=== PATIENT | female | born 1990 | race Caucasian/White ===

== ENCOUNTER 2019-11-14 17:16 | Emergency (ER) | payer OTHER, SELFPAY ==
--- NOTE | ~2019-11-14 | XR_ITS ---
XR shoulder RT min 2V 11/14/2019 18:51 Indication: Postreduction right shoulder Procedure: 2 views right shoulder Comparison: 11/14/2019 Findings: Normal anatomic alignment of the right shoulder post reduction. No fracture or traumatic ma lalignment. Surrounding osseous structures are unremarkable. No focal soft tissue abnormality. Impression: 1: Normal anatomic alignment of the right shoulder post reduction. Reviewed, dictated and finalized at location A. GE PREVENTION COORDINATOR Impression: 1: Normal anatomic alignment of the right shoulder post reduction.
--- NOTE | ~2019-11-14 | XR_ITS ---
XR shoulder RT min 2V 11/14/2019 17:57 Indication: Right shoulder pain after fall downstairs Procedure: 2 views right shoulder Comparison: No prior studies for comparison. Findings: There is right anterior shoulder dislocation. No definite fracture is identified. Surroundi ng osseous structures within normal limits. Impression: 1: Right anterior shoulder dislocation. Reviewed, dictated and finalized at location A. E SAW OPERATOR Impression: 1: Right anterior shoulder dislocation.
[2019-11-14 17:31] VITALS: BP 121/79; PULSE 65; RESP 20; TEMP 36.6; O2SAT 100
--- NOTE | 2019-11-14 17:52 | ED.UPPEXIN ---
HPI - Extremity Injury (Upper) General Chief Complaint: Extremity Injury, Upper <Elizabeth Delgado PA-C - Last Filed: 11/14/19 19:08> Stated Complaint: arm pain <NINA Bowen Last Filed: 11/14/19 19:08> Time Seen by Provider: 11/14/19 17:23 <NINA Bowen Last Filed: 11/14/19 19:08> Source: patient <NINA Bowen Last Filed: 11/14/19 19:08> Mode of arrival: ambulatory <NINA Bowen Last Filed: 11/14/19 19:08> Limitations: no limitations <NINA Bowen Last Filed: 11/14/19 19:08> History of Present Illness HPI narrative: This is a 29 year old female that presents to the ER for right arm injury today. Reports she slipped down the stairs and fell backwards onto her right elbow. Reports since she has had pain in her right shoulder that radiates into elbow. Reports she is unable to lift the arm to due pain. Denies hitting her head, loss of consciousness, or numbness. <NINA Bowen Last Filed: 11/14/19 19:08> Related Data Home Medications: Home Medications Medication Instructions Recorded Confirmed Sprintec (28) 1 tab/day PO DAILY 11/14/19 11/14/19 <NINA Bowen Last Filed: 11/14/19 19:08> Allergies/Adverse Reactions: Allergies Allergy/AdvReac Type Severity Reaction Status Date / Time Sulfa (Sulfonamide Allergy Rash Verified 11/14/19 17:38 Antibiotics) <NINA Bowen Last Filed: 11/14/19 19:08> Review of Systems Review of Systems: Narrative: CONSTITUTIONAL: Denies fever MUSCULOSKELETAL: Reports joint pain, and myalgia. NEUROLOGIC: Denies numbness <NINA Bowen Last Filed: 11/14/19 19:08> All systems reviewed & are unremarkable except as noted in HPI and below <NINA Bowen Last Filed: 11/14/19 19:08> FORMERLY [facility], [facility] Past Medical History Medical History: Medical History (Updated 11/14/19 @ 19:06 by Elizabeth Delgado PA-C) History of obesity <Elizabeth Delgado PA-C - Last Filed: 11/14/19 19:08> Social History Social History: Social History (Updated 11/14/19 @ 18:00 by Elizabeth Delgado PA-C) Substance use: never <Elizabeth Delgado PA-C - Last Filed: 11/14/19 19:08> Exam Narrative: Exam Narrative: GENERAL: Well-appearing, well-nourished, and in no acute distress. HEAD: Normocephalic, atraumatic. EYES: EOMI. CHEST: Clear to auscultation. No respiratory distress. No wheezes rales or rhonchi HEART: Regular rate and rhythm. No murmur heard. Normal peripheral pulses. EXTREMITIES: Right shoulder with decreased ROM due to pain. No edema. Right shoulder with obvious step off. Normal sensation and radial pulses. Normal ROM at the right elbow, nontender to palpation SKIN: Warm, dry, no rash. NEURO: No focal deficits. Alert and oriented x3. PSYCH: Normal mood and affect <Elizabeth Delgado PA-C - Last Filed: 11/14/19 19:08> Course Vital Signs Vital signs: Vital Signs Temperature 36.6 C 11/14/19 17:31 Pulse Rate 65 11/14/19 17:31 Respiratory Rate 20 11/14/19 17:31 Blood Pressure 121/79 11/14/19 17:31 Pulse Oximetry 100 11/14/19 17:31 Temperature 36.8 C 11/14/19 19:25 Pulse Rate 78 11/14/19 19:25 Respiratory Rate 18 11/14/19 19:25 Blood Pressure 125/80 11/14/19 19:25 Pulse Oximetry 100 11/14/19 19:25 <Elizabeth Delgado PA-C - Last Filed: 11/14/19 19:08> Vital Signs Temperature 36.6 C 11/14/19 17:31 Pulse Rate 65 11/14/19 17:31 Respiratory Rate 20 11/14/19 17:31 Blood Pressure 121/79 11/14/19 17:31 Pulse Oximetry 100 11/14/19 17:31 Temperature 36.8 C 11/14/19 19:25 Pulse Rate 78 11/14/19 19:25 Respiratory Rate 18 11/14/19 19:25 Blood Pressure 125/80 11/14/19 19:25 Pulse Oximetry 100 11/14/19 19:25 <Mario Jones MD - Last Filed: 11/14/19 21:03> Procedures Orthopedic Joint Reduction Joint #1: Orthopedic Joint Reduction Date: 11/14/19 <E
[2019-11-14 18:00] VITALS: BP 126/87; PULSE 64; RESP 17; O2SAT 100
[2019-11-14] MEDS: MORPHINE SULFATE 4 MG/ML INJ IV PUSH (18:01)
[2019-11-14 18:15] VITALS: BP 124/80; PULSE 64; RESP 20; O2SAT 100
[2019-11-14 18:30] VITALS: BP 131/86; PULSE 77; RESP 18; O2SAT 100
--- NOTE | 2019-11-14 18:54 | PC.NURSE ---
Pt placed into shoulder immobilizer. Pt educated on use. PMS intact prior and post placement of shoulder immobilizer.
[2019-11-14 19:25] VITALS: BP 125/80; PULSE 78; RESP 18; TEMP 36.8; O2SAT 100
== END 2019-11-14 19:28 | disposition home or self-care (01) ==
PROVIDERS: Emergency Provider Emergency Medicine; PCP Family Medicine
DX: S43.014A Anterior dislocation of right humerus, initial encounter (principal); W10.9XXA Fall (on) (from) unspecified stairs and steps, initial encounter
CPT/HCPCS: 23655; 73030; 96374; 96375; 99285; J2270; J3010

== ENCOUNTER → 2020-10-23 15:06 | Outpatient (CLI) | payer OTHER, SELFPAY ==
--- NOTE | ~2020-10-23 | US_ITS ---
EXAMINATION: US thyroid DATE: 10/23/2020 15:22 INDICATION: Goiter. TECHNIQUE: Multiple ultrasound images of the thyroid were obtained. COMPARISON: None. FINDINGS: The right thyroid lobe measures 4.5 x 1.4 x 1.3 cm. The left thyroid lobe measures 5.0 x 1.2 x 1.6 c m. In the left thyroid lobe, there is a 5 mm solid, hypoechoic, lgggd-vquz-iehl nodule with smooth m argin and punctate echogenic focus (TI-RADS TR5). In the left thyroid lobe, there is a 2 mm nodule, l ikely not clinically significant. IMPRESSION: 1. Small thyroid nodules. Thyroid ultrasound is recommended in one year. Reviewed, dictated and finalized at location A. CTOR FINANCIAL ANALYSIS
== END ==
PROVIDERS: PCP Family Medicine; Visit Provider Internal Medicine Endocrinology, Diabetes & Metabolism
DX: E04.2 Nontoxic multinodular goiter (principal)
CPT/HCPCS: 76536

== ENCOUNTER 2024-04-29 11:30 | Emergency (ER) | payer OTHER, SELFPAY ==
[2024-04-29 11:41] VITALS: BP 131/90; PULSE 125; RESP 20; O2SAT 100
[2024-04-29] MEDS: diphenhydrAMINE HCl INJ 50 MG/ML VIAL (11:52)
[2024-04-29] MEDS: SODIUM CHLORIDE 0.9% IV 50 ML 100 ML (11:52)
[2024-04-29 12:44] VITALS: BP 100/66; PULSE 117; RESP 21; O2SAT 99
--- NOTE | 2024-04-29 13:18 | ED.ALLEREA ---
HPI - Allergic Reaction General Chief complaint: Allergic Reaction Stated complaint: allergic reaction Time Seen by Provider: 04/29/24 11:45 History of Present Illness HPI narrative: Patient is a 33-year-old female who presents ER with urticarial reaction. Began just prior to arrival has been having issues since delivering a baby 1 week ago. She had been having some joint aches and she had also had fever on a separate day. [facility] where she had a viral panel yesterday as well as blood work and it was all normal. This has been reviewed on her [facility] everywhere appt. No difficulty breathing or swallowing. She does have itching. No new oral medications. She thought she had a viral syndrome and she has been pumping and dumping. No new perfumes or fabric softeners. Related Data Home Medications Medication Instructions Recorded Confirmed Sprintec (28) 1 tab/day PO DAILY 11/14/19 11/14/19 Allergies Allergy/AdvReac Type Severity Reaction Status Date / Time Sulfa (Sulfonamide Allergy Rash Verified 04/29/24 11:42 Antibiotics) Review of Systems Review of Systems: All systems reviewed & are unremarkable except as noted in HPI and below Constitutional: Constitutional: Reports no additional constitutional complaints Cardiovascular: Cardiovascular: Reports no additional cardiovascular complaints Respiratory: Respiratory: Reports no additional respiratory complaints Musculoskeletal: Musculoskeletal: Reports no additional musculoskeletal complaints Integumentary/Breasts: Skin/Breast: Reports pruritus, Denies erythema, Reports rash and Denies skin ulcer PMFSH Past Medical History Medical History (Updated 04/29/24 @ 14:25 by Sameer Jacobs MD) Anterior shoulder dislocation (11/14/19) History of obesity Family History Family History Other Cancer Diabetes mellitus Heart disease Hypertension Kidney disease Nerve disorder Social History Social History Alcohol intake: current Drinks per week: 1 Substance use: never Exam Narrative: GENERAL: Well-appearing, well-nourished, and in no acute distress. HEAD: Normocephalic, atraumatic. ENT: Mucous membranes moist. NECK: Supple. CHEST: Clear to auscultation. No respiratory distress. HEART: Tachycardic and regular. Normal peripheral pulses. EXTREMITIES: Normal range of motion. No edema. Nummular in appearance. No excoriations. NEURO: Alert and oriented x3. PSYCH: Normal mood and affect. Course Course Emergency Course: Symptoms resolved with Benadryl. Recommend Zyrtec and famotidine for home. Follow-up with OB. Vital Signs Vital signs: Vital Signs Oxygen Delivery Room Air 04/29/24 11:40 Pulse Rate 109 H 04/29/24 14:14 Respiratory Rate 20 04/29/24 14:14 Blood Pressure 117/90 04/29/24 13:25 Pulse Oximetry 98 04/29/24 14:14 Oxygen Delivery Room Air 04/29/24 11:41 Discharge Plan Discharge Clinical Impression: Urticaria Patient Disposition: Home, Self-Care Condition: Stable Instructions: Urticaria (ED) Additional Instructions: Return the ER if you have difficulty breathing, you have difficulty swelling, you have worsening rash, have additional concerns. You may take Zyrtec and famotidine to help prevent recurrence of the rash. Follow-up with your OB. Prescriptions: New cetirizine [Zyrtec] 10 mg tablet 10 mg PO DAILY Qty: 10 0RF famotidine 10 mg tablet 10 mg PO BID Qty: 20 0RF No Action Sprintec (28) 1 tab/day PO DAILY hydrocodone-acetaminophen 5-325 mg tablet 1 tablet PO Q8H PRN (Reason: pain) Qty: 20 0RF Follow-up/Referrals: Jorge Luis,MD Oniel [Primary Care Provider] - 1 Week
[2024-04-29 13:25] VITALS: BP 117/90; PULSE 109; RESP 20; O2SAT 98
[2024-04-29 14:14] VITALS: PULSE 109; RESP 20; O2SAT 98
[2024-04-29 14:30] VITALS: BP 127/90; PULSE 106; RESP 19; TEMP 36.5; O2SAT 98
== END 2024-04-29 14:31 | disposition home or self-care (01) ==
PROVIDERS: Emergency Provider Emergency Medicine; PCP Family Medicine
DX: O99.73 Diseases of the skin and subcutaneous tissue complicating the puerperium (principal); L50.9 Urticaria, unspecified; O99.215 Obesity complicating the puerperium; E66.9 Obesity, unspecified
CPT/HCPCS: 96361; 96374; 99284; J1200

== ENCOUNTER 2024-10-28 20:33 | Emergency (ER) | payer OTHER, SELFPAY ==
--- OUTSIDE RECORDS SUMMARY | 2024-10-28 20:34 | XMS_ITS | Encounter Summary ---
Author Organization [facility] Healthcare Address [address] [place] [address] Care Team Providers Care Silk Screen Repairer Name Role Phone Maria Teresa Colon MD Primary Care Provider Encounter Details Date Type Department Care Team (Late st Contact Info) Description 04/28/[address] [phone] Denisse Pizarro RN Social History Tobacco Use Types Packs/Day Years Used Date Smoking Tobacco: Never Passive Smoke Exposure: Never Smokeless Tobacco: Never [facility] Utilities Answer Date Recorded In the past 12 months has [employer] electric, gas, oil, or water company threatened to shut off services in your home? No 04/21/2024 Social Connection and Isolat ion Panel [NHANES] Answer Date Recorded In a typical week, how many times do you talk on the phone with family, friends, or neighbors? More than three times a week 04/21/2024 How often do you get togethe r with friends or relatives? More than three times a week 04/21/2024 How often do you attend chur ch or gnosticism services? Never 04/21/2024 Do you belong to any clubs o r organizations such as spiritism groups, unions, fraternal or athletic groups, or school groups? No 04/21/2024 How often do you attend meet ings of the clubs or organizations you belong to? Never 04/21/2024 Are you , , di vorced, , never , or living with a partner? 04/21/2024 AUDIT-C Answer Date Recorded Q1: How often do you have a drink containing alc ohol? 2-4 times a month 09/14/2023 Q2: How many drinks containi ng alcohol do you have on a typical day when you are drinking? 1 or 2 09/14/2023 Q3: How often do you have si x or more drinks on one occasion? Never 09/14/2023 Overall Financial Resource Strain (CARDIA) Answe r Date Recorded How hard is it for you to pa y for the very basics like food, housing, medical care, and heating? Not hard at all 04/21/2024 Hunger Vital Sign Answer Date Recorded Within the past 12 months, y ou worried that your food would run out before you got the money to buy more. Never true 04/21/20 24 Within the past 12 months, t he food you bought just didn't last and you didn't have money to get more. Never true 04/21/2024 PRAPARE - Transportation Answer Date Re corded In the past 12 months, has l ack of transportation kept you from medical appointments or from getting medications? No 03/28 In the past 12 months, has l ack of transportation kept you from meetings, work, or from getting things needed for daily living? No 04/21/2024 Housing Stability Vital Sign Answer Arthur e Recorded In the last 12 months, was t here a time when you were not able to pay the mortgage or rent on time? No 04/21/2024 In the past 12 months, how m any times have you moved where you were living? 1 04/21/2024 At any time in the past 12 m [facility], were you homeless or living in a jail (including now)? No 04/21/2024 Personal Safety Answer Date Recorded Have you ever been in or are you currently in a harmful physical or emotional relationship or is someone making you feel afraid or unsafe? 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 Not on file Not on file Not on file documented as of this encounter Plan of Treatment Not on file documented as of this encounter Visit Diagnoses Not on filedocumented in this encounter Additional Health Concerns Infection Onset Date Last Indicated Resolved Time COVID: Suspected 04/28/2024 04/28/2024 04/28/2024 10:42 AM CDT COVID: Suspected 04/28/2024 04/28/2024 04/28/2024 12:25 PM CDT documented as of this encounter Care Teams Silk Screen Repairer Relationship Specialty Start Date End Date Maria Teresa Colon MD [address] [place] [id number] PCP - General Family Medicine 06/25/23 documented as of this encounter
--- OUTSIDE RECORDS SUMMARY | 2024-10-28 20:34 | XMS_ITS | Clinical Summary ---
Author Organization [facility] Address [address] [place] [address] Care Team Providers Care Show Card Writer Name Role Phone Maria Teresa Colon MD Primary Care Provider Allergies Active Allergy Reactions Criticality Noted Date Comments Sulfa Rash Medium 09/14/2023 Medications PNV no.95/ferrous fum/folic ac ( ORAL) Take by mouth Active aspirin 81 mg enteric coated tablet Take 1 tablet (81 mg total) by mouth daily Active iron 18 mg tablet Take by mouth Active sertraline (ZOLOFT) 100 mg tablet TAKE 1 TABLET BY MOUTH ONCE A DAY 30 DAYS (DISCONTINUE 50MG TAB) 4 Active Unithroid 50 mcg tabletIndication s:Hypothyroidism , unspecified type Take 1 tablet (50 mcg total) by mouth daily 90 tablet 3 4 Active metFORMIN XR (GLUCOPHAGE XR) 500 mg 24 hr tabletIndication s:PCOS (polycystic ovarian syndrome) Take 1 tablet (500 mg total) by mouth daily with breakfast 90 tablet 3 4 Active Active Problems Problem Noted Date Diagnosed Date Hypothyroidism 06/21/2024 Obesity 06/21/2024 care following delivery 03/28 Overview (04/23/2024): # ID: Afebrile. No signs/symptoms of infection. # Heme: Admit Hgb 11.4 > EBL 800 mL> Hgb 8.7> 9.0> 8.5> 8.1> 8.4. Hemodynamically stable. PO Iron started # CV/Pulm: Patient with 2xMR pressures postop, not meeting criteria for gHTN. CBC/CMP notable for elevated Cr, AST (see below). Patient currently normotensive, denying RAYMUNDO/vision changes, RUQ pain. Continue to monitor pressures. # GI/: Tolerating PO. Voiding spontaneously. Denies BM- encouraged increased ambulation and water intake.#ALONDRA, resolving: Intrapartum Cr increased from 0.75 > 1.01 > pre-renal oliguria (FeNA 0.2%) > max Cr 1.42 immediately post-op. Currently normotensive without signs/symptoms of pre-eclampsia. Aside from Cr, CMP notable for mildly elevated post-op AST 46 > POD1 AST 50 (see below). Likely etiology: isolated ALONDRA due to intrapartum hypovolemia. Most recent Cr 1.12 on POD1> Cr 0.91 on POD2. Consider Mg if meets criteria for PreE (however BPs currently normotensive, as above. #Elevated AST: Aside from Cr, CMP notable for mildly elevated post-op AST 46 > POD1 AST 50> POD2 AST 50. Continue daily labs while admitted. #Hypothyroid: On 50 mcg Synthroid daily during , pre- regimen also 50mcg. Continued . Patient desires to get referral to endo here upon discharge. #PCOS #Insulin resistance: A1c 5.2 on IOB labs. Previously on mounjaro & metformin. No meds . For further follow up outpatient. # Pain: Controlled with above regimen. #Anxiety: stable on Zoloft 100 mg daily. S/p SW . # MOC: Partner vasectomy, declines bridge . # MOF: . Urine drug screen not indicated. Patient informed of results: N/A. # Post DVT prophylaxis: The patient has the following MAJOR risk factors BMI >/= 40 and the following MINOR risk factors delivery. enoxaparin 40 mg BID ordered for VTE prophylaxis. #Disposition: Follow up to be scheduled with primary OB. Desires discharge home today. Meeting postop milestones. Assessment & Plan (05/04/2024 6:55 PM CDT): -Meeting milestones appropriately -Incision well healing on exam -Continue restrictions until 6 week visit (nothing per vagina [no tampons, intercourse, douching], no heavy lifting greater than 10 pounds, and no immersion in water [no baths, pools, hot tubs; showering is ok]) Encounter for induction of labor 04/18/2024 Overview (04/18/2024): Yaneth Velasco is a 33 y.o. female at 39w0d who is dated by L=1 and is being admitted for an elective induction of labor. Admit to L&D: Consents signed and placed in chart. Labs: CBC and T&S pending. Induction of labor with Miso and FB . FWB: Continuous monitoring. tracing category I. ID: 3rd trimester HIV (>28 wga) negative on 04/03. GBS negative on 04/03 . RPR on admission: pending. History of genital HSV or HSV 1/2 seropositivity: No. Membrane Status: intact. Indications for UDS: none. Verbal consent obtained for UDS: Not indicated. MOF: Plans to breastfeed. Urine drug screen not indicated. Patient informed of results: N/A. MOC: Partner vasectomy, declines bridge . Pain management: Desires epidural. Post DVT prophylaxis: The patient has the following MAJOR risk factors BMI >/= 40 and the following MINOR risk factors none. enoxaparin 40 mg BID will be ordered for VTE prophylaxis . #LGA: 3945g (>99%ile) on 04/03 Lizeth. S/p shoulder dystocia counseling on admission. #Left ventriculomegaly: Left lateral ventricle most recently measuring 11 mm. S/p amnio with normal studies. For Peds Neuro consult. Alert Peds on admission. #Mild Polyhydramnios: MARLON 26.9 cm on most recent US on 04/13. #Hypothyroid: On 50 mcg Synthroid daily. #Anxiety: On Zoloft 100 mg daily. For SW #PCOS #Insulin resistance?: A1c 5.2 on IOB labs. Previously on mounjaro & metformin Resolved Problems Problem Noted Date Diagnosed Date Resolved Date Polyhydramnios in third trim cami, not applicable or unspecified fetus 04/04/2024 06/01/20 24 Overview (04/04/2024): 04/03- MVP 9.5 cm. MARLON 28.7 Counseled by US Recommend repeat fluid check next week SROM/Labor precautions reviewed Hypothyroid in , antepartum 02/18/2024 06/01/2024 Overview (04/03/2024): Current regimen: unithroid 50 mcg TSH: 2.41 (01/19/24) Previously counseled Recommendations: [] TSH q trimester- recommended in the 3T, ordered 04/03/2024 [] Maintain TSH within trimester-specific cutoffs (0.1 - 2.5 mU/L in the first trimester, 0.2 - 3.0 mU/L in the second trimester, and 0.3 to 3.0 mU/L in the third trimester) Assessment & Plan (02/18/2024 3:06 PM CDT): Current regimen: unithroid 50 mcg TSH: 2.41 (01/19/24) Counseling 02/16/2024: Well controlled hypothyroidism is is not associated with adverse outcomes, in general. Poorly controlled, overt hypothyroidism has been associated with a number of poor outcomes, including gestational hypertension and preeclampsia, abruption, delivery, miscarriage, low weight, cognitive impairment, and hemorrhage. women with hypothyroidism should maintain their TSH within trimester-specific cutoffs (0.1 - 2.5 mU/L in the first trimester, 0.2 - 3.0 mU/L in the second trimester, and 0.3 to 3.0 mU/L in the third trimester) to optimize outcome. Typically T4 requirements will increase in , sometimes as much as 50% by the 5th gestational week. We recommend screening TSH every trimester, as up to 60% of patients with pre- existing hypothyroidism will require increasing their replacement dose through . Recommendations: [] TSH q trimester [] Maintain TSH within trimester-specific cutoffs (0.1 - 2.5 mU/L in the first trimester, 0.2 - 3.0 mU/L in the second trimester, and 0.3 to 3.0 mU/L in the third trimester) Obesity affecting in third trimester 02/18/2024 06/01/2024 Overview (03/07/2024): Pre- BMI: >35 Previously counseled Plan: [x] Initiate aspirin 81 mg at 12 weeks for preeclampsia risk reduction [x] Early gestational diabetes screening with Hgb A1C (<5.7 no further testing until 2nd trimester, 5.7-6.5 obtain fasting 3 hour glucose tolerance test, >6.5 refer to CDP clinic) [x] Specialized anatomic survey at 20 weeks [x] Consider growth ultrasounds every 4 weeks at 28 weeks [x] Weekly testing at 37 weeks (BMI 35.0-39.9) Assessment & Plan (02/18/2024 3:07 PM CDT): Pre- BMI: >35 Counseling 02/16/2024: Obesity in (BMI >30) is associated with increased risks. Maternal risks include preeclampsia, gestational diabetes and section. risks include anomalies, growth abnormalities (FGR and macrosomia) and stillbirth. Recommended weight gain is a total of 11-20 lbs, with 1-4 lbs in the 1st trimester and 0.5 lb/week in the 2nd and 3rd trimesters. Plan: [x] Initiate aspirin 81 mg at 12 weeks for preeclampsia risk reduction [x] Early gestational diabetes screening with Hgb A1C (<5.7 no further testing until 2nd trimester, 5.7-6.5 obtain fasting 3 hour glucose tolerance test, >6.5 refer to CDP clinic) [x] Specialized anatomic survey at 20 weeks [] Consider growth ultrasounds every 4 weeks at 28 weeks [] Weekly testing at 37 weeks (BMI 35.0-39.9) Anxiety during 02/18/202401/2024 Overview (03/07/2024): Current regimen: sertraline 100 mg Continues with a therapist regularly Previously counseled Plan: [x] Continue current medication regimen [] Monitor mood every visit Assessment & Plan (02/18/2024 3:08 PM CDT): Current regimen: sertraline 50 mg Counseling 02/16/2024: Anxiety disorders affect 1 in 5 patients and can cause significant functional impairment. Patients with under treated anxiety have a higher risk of depression. They also have a higher risk of , low weight, and behavioral challenges in offspring. Regular follow-up with a mental health provider is recommended throughout and . SSRIs are considered first-line medications for the treatment of depression or anxiety in .. The risks of SSRI exposure have been explored by multiple studies, but the results from these studies are conflicting and limited by confounders. There is a weak association between SSRIs and defects (with the exception of paroxetine/Paxil and a higher risk of congenital heart defects). There is a potential association between maternal use of SSRIs in late and the risk of persistent pulmonary hypertension of the (PPHN) 1-10/999 cases. We reviewed the risk of adaptation syndrome (occurring in 10-30% of exposed babies) which is a cluster of symptoms including irritability, restlessness, tremors, hypoglycemia, hypothermia, sleep disruptions and poor feeding. This syndrome can be easily managed by the pediatricians, and no shelter effects have ever been demonstrated. Abrupt discontinuation of SSRIs is associated with symptoms including GI distress, dizziness, fatigue, headache, sleep disturbances, and electric like shocks. It is recommended that benefits of SSRIs outweigh risks, although lowest effective dose should be utilized to control patient symptoms. Plan: [] Continue current medication regimen [] Monitor mood every visit Excessive growth affec ting management of in third trimester 02/16/2024 06/01/20 Overview (04/03/2024): (02/07/24) EFW 98%ile, AC 97%ile 1hr GTT: 116 (01/19/24) 03/07/2024 accu check 88, accu check 04/03/2024 wnl S/p LGA delivery counseling. Discussed with Dr. Zamarripa and plan for IOL at 39 weeks. Reviewed increased risk of C/S, shoulder dystocia and hemorrhage. Reviewed risks of hypoglycemia. [facility] consult pending but do anticipate them changing the plan for an IOL at 39 weeks. Assessment & Plan (04/03/2024 2:19 PM CDT): Reviewed her US with LGA growth today. Her diabetes screen was reviewed and was normal . We performed an accu check today in clinic and was normal. Reviewed risks of LGA growth including increased risk for C/S delivery, operative delivery, shoulder dystocia and discussed risks of all three. Reviewed risks of should dystocia including risk of and hypoxia. Reviewed increased risk of hemorrhage and hypoglycemia. Assessment & Plan (03/07/2024 9:23 AM CDT): Reviewed her US with LGA growth today. Her diabetes screen was reviewed and was normal . We performed an accu check today in clinic and was 88 . Reviewed risks of LGA growth including increased risk for C/S delivery, operative delivery and should dystocia and discussed risks of all three. Reviewed risks of shoulder dystocia including risk of hypoxia and risk of . Possible clavicular break and with complications including nerve damage. Reviewed increased risk of hemorrhage and hypoglycemia. Repeat growth was ordered. Assessment & Plan (02/18/2024 3:05 PM CDT): (02/07/24) EFW 98%ile, AC 97%ile 1hr GTT: 116 (01/19/24) We discussed recommendation for CS for LGA if EFW > 5000g and increased risk for hypoglycemia with LGA . Plan: [] Repeat growth ultrasound in 4 weeks mild unilateral ventriculomegaly 02/09/2024 06/01/2024 Overview (04/04/2024): Unilateral mild ventriculomegaly was noted on ultrasound 02/06; the left ventricle measures 11 mm in the largest measurement. No other intracranial abnormalities were identified. The 3rd and 4th ventricles were not dilated. Previously counseled S/p amniocentesis 02/08/24: FISH and TORCH serologies WNL, SALES PERFORMANCE ANALYST normal 03/07/2024 Left lateral ventricle measures within normal limits 04/03/2024 left lateral ventricle 11mm. Per Dr. Arshad plan for peds neuro consult Plan: [] Repeat US in 1 week [] [facility] RN to help arrange neuro consult Assessment & Plan (02/18/2024 3:04 PM CDT): Unilateral mild ventriculomegaly was noted on ultrasound 02/06; the left ventricle measures 11 mm in the largest measurement. No other intracranial abnormalities were identified. The 3rd and 4th ventricles were not dilated. S/p amniocentesis 02/08/24: FISH and TORCH serologies WNL, SALES PERFORMANCE ANALYST pending Counseling 02/16/24: We discussed the differential for mild ventriculomegaly including a normal variant (90%), chromosomal abnormality or genetic cause (5%), infection (such as CMV or toxoplasmosis, 5%) and structural abnormalities. We discussed that the prognosis for mild ventriculomegaly - depending on cause, the survival rate is quoted at 93-98% and normal neurodevelopmental outcomes are reported in >90%. Amniocentesis was performed on 02/07; FISH has resulted with normal female pattern. CMV, parvovirus, and toxoplasma gondii PCR negative. SALES PERFORMANCE ANALYST is pending. Plan: [] Plan for growth ultrasound on 03/07, and if progression of ventriculomegaly is identified, referral to the [facility] will be placed. Supervision of high-risk pre gnancy, third trimester 02/09/2024 06/01/2024 Overview (04/04/2024): [x] Co-management [x] Blue Team Referring Provider: Sandra Thorne [phone] [] or Medicare Insurance [x] Dating Criteria: LMP 07/20/23 with ANSELMO 04/25/24 [x] Labs: Rh [AB+], Ab [negative], Rubella [immune], HIV [non- reactive], HepBSAg [non-reactive], RPR [non-reactive], Hep C [non-reactive], Varicella [positive], GC/CT [negative/negative] [] Aneuploidy: [x] Carrier Screening: SMA positive [x] CBC/Hgb: 12.6/36.5/plt 275 [] Early 1hr GTT (if indicated) [x] UCx: 09/14/23: negative [x] Pap: 05/05/21: NILM [] Flu Shot (May-Aug): [] COVID [x] LD ASA (if indicated) [] EPDS [ ]; PNBHS referral (if indicated) 2nd Tri Labs: [x] Anatomy ultrasound: [x] CBC/1hr gtt at 24-28wks: 01/19/24: 10.5/31.5/plt 277, GTT 116, RPR [non- reactive] [x] Tdap (27-36wks): received 02/08/24 [x] Rhogam at 28 wks (if Rh neg): AB+, N/A 3Tlabs and GBS [x] Ordered and performed 04/03/2024 per patients request WNL 3rd Tri Labs and delivery with primary OB. Weekly testing at 37 weeks 2/2 obesity. Will plan for BPPs to monitor fluid. IOL scheduled for 39 weeks. Assessment & Plan (02/18/2024 3:05 PM CDT): 3rd Tri Labs: [] CBC/HIV/RPR/T&S: [] GBS: [] GC/CT (if indicated): [] testing: Weekly at 37 weeks (BMI >35) [] RSV Counseling [] MOD: TBD [] Place of delivery: [facility] with primary OB Supervision of other normal , antepartum 09/03/2023 06/01/2024 Overview (04/13/2024): -PCOS: previously on mounjaro -possible insulin resistance: on metformin -A1c 5.2 @ NOB -hypothyroidism on Unithroid 50 mcg daily, recommend TSH q4-6 weeks +SMA carrier, partner testing negative -LGA on anatomy- 98% @ 33wks -anxiety-zoloft Anemia-every other day iron -02/06: baby has left unilateral mild ventriculomegaly (11 mm). We cannot see the right side to provide a measurement today. amniocentesis completed 02/07. SALES PERFORMANCE ANALYST nml, other tests nml/neg MFM follow-up and growth 03/07--normalized 04/03 Left unilateral ventriculomegaly noted again on US (11 mm). M to coordinate [facility] consult and US next week. -IOL sched 04/18/2024 @ 2000, pt aware - Mild Polyhydramnios on US 04/03, persists 04/13 [x] Initial BMI: 36.01 [x] Labs: Labs: Lab Results Component Value Date ABORH AB Positive 09/14/2023 IDCOOMB Negative 09/14/2023 [id number] Nonreactive 09/14/2023 LABRPR Nonreactive 09/14/2023 RUBELIGG Reactive 09/14/2023 HEPBSAG Nonreactive 09/14/2023 [x] Genetic Screening: nml flk and horizon 4+for SMA [x] Baby ASA: n/a [x] 1hr GCT at 24-28wks:116 [x] Tdap (27-36wks):02/08/24 BB [x] Flu Shot: rcvd [x] COVID vaccine: vaccinated & boosted [] Rhogam (if Rh neg): n/a AB+ [x] GBS at 36 wks: negative [x] [] control method: [x] 39 weeks discussion of IOL vs. Expectant management: 39wk IOL [x] Mode of delivery: anticipate [] For C/S bottle of CHG 4% and hand out provided @ 36wks Girl! Gerardo Esposito Peds Teaching: [x] 1st visit [x] 28-30 week [x] 36 week Immunizations Name Administration Dates Next Due MMR 04/21/2024(Deferred: No longer needed),04/20/2024(Deferred: No longer needed) Tdap 02/08/2024 Medical History Medical History Date Comments Clay's disease PCOS (polycystic ovarian syndrome) Obesity Family History Medical History Relation Name Comments Diabetes type II Father Breast cancer Mother Diabetes type I Mother Heart disease Mother Kidney disease Mother Relation Name Status Comments Father Alive Mother Alive Social History Tobacco Use Types Packs/Day Years Used Date Smoking Tobacco: Never Passive Smoke Exposure: Never Smokeless Tobacco: Never Tobacco Cessation:Counseling Given: No [email or web address] Utilities Answer Date Recorded In the past 12 months has [employer], oil, or water [employer] threatened to shut off services in your [...] 04/21/2024 How often do you attend chur or jew services? Never 04/21/2024 Do you belong to any clubs o r organizations such as lutheran groups, unions, fraternal or athletic groups, or [...] things needed for daily living? No 04/21/2024 [place] Depression Scale Answer Date Recorded [place] Depression Scale Total 0 06/01/2024 The thought of harming myself has occurred to me . Never 06/01/2024 Housing Stability Vital Sign Answer Arthur e Recorded In the last 12 months, was t here a time when you were not able to pay the mortgage or rent on time? No 04/21/2024 In the past 12 months, how m any times have you moved where you were living? 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 Main C ampus ([facility] L AND D PROCEDURE) Comments [id number] IOL. Li crespo [facility] for failure to descent, EBL 800 Baby girl, Kristy! Last Filed Vital Signs Vital Sign Reading Time Taken Comments Blood Pressure 114/77 06/21/2024 2:59 PM CDT Pulse 76 06/21/2024 2:59 PM CDT Temperature 36.8 ??C (98.2 ??F) 06/21/2024 2:59 PM CD T Respiratory Rate 20 04/28/2024 9:40 AM CDT Oxygen Saturation 97% 04/28/2024 9:40 AM CDT Inhaled Oxygen Concentration - - Weight 116.9 kg (257 lb 12.8 oz) 06/21/2024 2:59 PM CDT Height 172.7 cm (5' 8 ) 06/21/2024 2:59 PM CDT Body Mass Index 39.2 06/21/2024 2:59 PM CDT Plan of Treatment Health Maintenance Due Date Last Done Comments Varicella Vaccines (1 of 2 - 13+ 2-dose series) 2004 Hepatitis B Screening 2009 Regular Well Visit/Exam 18-64 2009 Influenza Vaccine (#1) 2024 07/01/2023, 2021 Cervical Cancer Screening 06/01/2025 06/01/2024, 01/2024 Depression Screening 06/01/2025 06/01/2024 DTaP/Tdap/Td Vaccine (7 - Td or Tdap) 02/07/2034 02/08/2024, 04/18/1996, 01/31/1993, Additional history exists Hepatitis C Screening Completed 09/14/2023 HPV Vaccines Aged Out No longer eligi ble based on patient's age to complete this topic Pneumococcal vaccine <65 Aged Out No longer eligible based on patient's age to complete this topic Procedures Procedure Name Priority Date/Time Associated Diagnosis Comments HIGH RISK HPV DNA DETECTION WITH GENOTYPING Routine 06/01/2024 12:40 PM CDT Encounter for routine follow-up HEPATITIS C ANTIBODY Routine 09/14/2023 9:18 AM VOICE COACH Supervision of other normal , antepartum from Last 3 Months or Most Recently Relevant to Health Maintenance Results * High Risk HPV DNA Detection with Genotyping (Molecular component) (06/01/2024 12:40 PM CDT) HPV HR [address] [facility] Comment:Collection date/time has been modified to: 12:40:00. Previous collection date/time: 12:40:00. Collection date/time has been modified to: 12:40:00. Previous collection date/time: 12:40:00. HPV HR 18 Not Detected Not Detected [facility] Comment:Collection date/time has been modified to: 12:40:00. Previous collection date/time: 12:40:00. Collection date/time has been modified to: 12:40:00. Previous collection date/time: 12:40:00. HPV HR Non 16/18 Not Detected Not Detected [facility] Comment: Interpretive Data Nucleic acid amplification for detection of high-risk Human Papilloma virus (HPV) is performed by the Laura Gonsalo 6800 HPV test. ??This assay specifically detects HPV-16 and HPV-18 genotypes. ??The following HPV genotypes are detected as high-risk HPV: ?? HPV-31, 33, 35, ,39, 45, 51, 52, 56, 58, 59, 66, and 68. ??This assay has been approved by the [place] Food and Drug Administration for detection of HPV in cervical specimens collected by a physician using an endocervical brush/spatula or cervical broom and placed in the ThinPrep Pap Test PreservCyt collection containers. ??The performance characteristics of this test have been verified by the [facility] Molecular Infectious Disease laboratory. Correlate with separately reported cytology results, as applicable. Interpretive data last revised 23 Collection date/time has been modified to: 12:40:00. ??Previous collection date/time: 12:40:00. Collection date/time has been modified to: 12:40:00. ??Previous collection date/time: 12:40:00. Endocervical 06/01/2024 12:4 0 PM CDT 06/01/2024 12:43 PM CDT Narrative ENRIQUE VASQUEZ - 06/05/2024 3:19 PM CDT Clinical history and diagnosis->none Number of vials->1 Testing type->Screening Last menstrual period (date if known)->unknown Menstrual status->Post Contraceptive use->None Talisha Julio NP LAB BODY FLU IDS AND STOOLS ORDERABLES Edited Result - Final ENRIQUE VASQUEZ [facility] Department [place] [address] [facility] * Hepatitis C antibody Blood (09/14/2023 9:18 AM VOICE COACH) Hep C Ab Nonreactive Nonreactive ENRIQUE VASQUEZ Comment:Antibodies to HCV no t detected. Does NOT exclude the possibility of recent exposure to HCV. Current interpretive data was last revised on 22 Blood 09/14/2023 9:18 AM VOICE COACH 09/14/2023 10:34 AM VOICE COACH us Scarlet Mcleod MD LAB MICROBIOLOGY - NERAL ORDERABLES Final Result [facility] Department [place] [address] from Last 3 Months or Most Recently Relevant to Health Maintenance Insurance [facility] CHOICE PLUS Advance Directives For more information, please contact: [phone] * Full Code (Latest Code Status on File) Date Activated Date Inactivated Comments 04/20/2024 7:05 AM 04/23/2024 5:39 PM * Full Code Date Activated Date Inactivated Comments 04/18/2024 9:05 PM 04/20/2024 7:05 AM Full CPR in case of cardiopulmonary arrest Care Teams Show Card Writer Relationship Specialty Start Date End Date Maria Teresa Colon MD [address] [place] [id number] PCP - General Family Medicine 06/25/23
--- OUTSIDE RECORDS SUMMARY | 2024-10-28 20:34 | XMS_ITS | Data Portability ---
Author Organization [facility] [place] Address [address] [place] [address] Assessment No assessment recorded. Plan of Treatment Reminders Order Date Submit Date Provider Last Modified By Organization Details Last Modified Time Details Appointments None recorded. Lab 17-hydroxy progestero ne, QN, serum 2019 020 [place] [facility]), [facility], [place], [address], 0 13:53:18 dhea-sulfa te, serum 2019 020 [facility] ([facility]), [address] [place], [place] [address] [facility] Jacqueline, [place], [address], 0 13:53:17 estradiol, serum 2019 020 [facility] ([facility]), [facility] [address] [facility] Jacqueline, [place], [address], 0 13:53:15 FSH (follicle- stimulatin g hormone), serum 2019 020 [facility] ([facility]), [address] [place], [place] [address], [place], [address], 0 13:53:15 HbA1c (hemoglobi n A1c), blood 2019 020 [facility] ([facility]), [address], [place], [address], 0 13:53:16 lh (luteinizi ng hormone), serum 2019 [facility] ([facility]), [address], [place], [address], 0 13:53:14 progestero ne, serum 2019 [facility] ([facility]), [address], [place], [address], 0 13:53:14 prolactin, serum 2019 [facility] ([facility]), [address], [place], [address], 0 13:53:13 shbg (sex hormone-bi nding globulin), serum 2019 [facility] ([facility]), [address], [place], [address], 0 13:53:13 testostero ne, total, serum 2019 [facility] ([facility]), [address], [place], [address], 0 13:53:17 TSH, serum or plasma 2019 [facility] ([facility]), [address], [place], [address], 0 09:27:57 test, urine 2019 020 [email or web address] [place], [address], [place], [address], 0 21:17:55 Referral None recorded. Procedures None recorded. Surgeries None recorded. Imaging None recorded. Medication Orders None recorded. Patient TargetsNo targets recorded. Patient InstructionsNo instructions recorded. Reason for Referral None Reported. Results Created Date Observation Date Name Description Value Unit Range Abnormal Flag Note LastModifiedBy Organization Detail LastModifiedTime 04/30/20 20 04/30/2020 pregn troy test, urine HCG negati ve Not Available [place] [address], [place], [address], 04/30/2020 14:14:19 06/04/20 20 06/05/2020 thyro id perox idase (tpo) Ab, serum thyroid peroxidase antibody <9 U/mL <9-34 An eleva marsha Thyro id Perox idase Antib leonel shoul d not be used alone to make the diagn osis of autoi mmune thyro id disea se. A resul t of <34 U/mL does not defin itive ly rule out the possi bilit y of autoi mmune thyro id disea se. Not Available [facility] ([facility]) [address] [place] [address] Dr [address]oya, [place], [address], 06/05/2020 09:27:56 06/04/20 20 06/05/2020 thyro globu shania Ab, serum thyroglobuli n antibody <10 IU/mL <10-11 5.0 Not Available [facility] ([facility]) [address] [place] [address] Dr Moya, [place], [address], 06/05/2020 09:27:56 06/04/20 20 06/05/2020 TSH, serum or plasm a TSH 5.13 mU/L 0.27-4 .20 high Not Available [facility] ([facility]) [address] [place] [address] Dr Moya, [place], [address], 06/05/2020 09:27:57 06/04/2006/05/2020 T4, free, serum thyroxine free (free T4) 1.08 NG/dL 0.86-1 .76 Not Available [facility] ([facility]) [facility] [address], [place], [address], 06/05/2020 09:27:57 06/04/2006/05/2020 T3, free, serum or plasm a free T3 2.75 pg/mL 2.30-4 .40 Not Available [facility] ([facility]) [address] [place] [address] Dr Moya, [place], [address], 06/05/2020 09:27:58 06/04/2006/05/2020 shbg (sex hormo ne-bi nding globu shania), serum sex hormone binding globulin (shbg) 53.3 nmol/ L 24.6-1 22.0 STAGE MALE FEMAL E Tanne r Stage I: 26-18 6 nmol/ L 30-17 3 nmol/ L Tanne r Stage II: 22-16 9 nmol/ L 16-12 7 nmol/ L Tanne r Stage III: 13-10 4 nmol/ L 12-98 nmol/ L Tanne r Stage IV: 11-60 nmol/ L 14-15 1 nmol/ L Tanne r Stage V: 11-71 nmol/ L 23-16 5 nmol/ L Not Available [facility] ([facility]) [address] [place] [address] Dr Moya, [place], [address], 06/07/2020 13:53:13 06/04/20 20 06/05/2020 prola ctin, serum prolactin 18.30 NG/mL 4.79-2 3.30 Not Available [facility] [address] [place] [address] Dr Moya, [place], [address], 06/07/2020 13:53:13 06/04/20 20 06/05/2020 proge stero ne, serum progesterone 0.15 NG/mL Proge stero ne Refer ence Range Healt hy women Folli cular phase 0.057 - 0.893 Ovula tion phase 0.121 - 12.0 Lutea l phase 1.83 - 23.9 Postm enopa use <0.05 - 0.126 Healt hy pregn ant women 1st trime ster 11.0 - 44.3 2nd trime ster 25.4 - 83.3 3rd trime ster 58.7 - 214 Not Available [facility] ([facility]) [facility] [address]oya, [place], [address], 06/07/2020 13:53:14 06/04/20 20 06/05/2020 lh (lute inizi ng hormo ne), serum luteinizing hormone 8.10 mIU/m L LH Refer ence Range Men: 1.7 - 8.6 Women : Folli cular phase 2.4 - 12.6 Ovula tion phase 14.0 - 95.6 Lutea l phase 1.0 - 11.4 Postm enopa use 7.7 - 58.5 Not Available [facility] ([facility]) [facility] [address]oya, [place], [address], 06/07/2020 13:53:14 06/04/20 20 06/05/2020 FSH (foll icle- stimu latin g hormo ne), serum FSH 8.35 mIU/m L FSH Refer ence Range Men: 1.5 - 12.4 Women : Folli cular phase 3.5 - 12.5 Ovula tion phase 4.7 - 21.5 Lutea l phase 1.7 - 7.7 Postm enopa use 25.8 - 134.8 Not Available [facility]) [address] [place] [address] Dr Moya, [place], [address], 06/07/2020 13:53:15 06/04/20 20 06/05/2020 estra diol, serum estradiol 26 pg/mL Estra diol Refer ence Range Healt hy women Folli cular phase 12.4 - 233 Ovula tion phase 41.0 - 398 Lutea l phase 22.3 - 341 Postm enopa use <5 - 138 Healt hy pregn ant women 1st trime ster 154 - 3243 2nd trime ster 1561 - 33991 3rd trime ster 8525 - >3000 0 Not Available [facility] ([facility]) [address] [facility] [address]oya, [place], [address], 06/07/2020 13:53:15 06/04/20 20 06/05/2020 HbA1c (hemo globi n A1c), blood hemoglobin A1C 4.8 % <5.7 The follo wing HbA1c range s recom vonda d by the Ameri can Diabe carlo Assoc iatio n (ADA) may be used as an aid in the diagn osis of diabe carlo melli tus. HA1c Sugge sted Diagn osis >=6.5 % Diabe tic 5.7% - 6.4% Pre-D iabet ic <5.7% Non-D iabet ic Not Available [facility]) [address] [facility] [address], [place], [address], 06/07/2020 13:53:16 06/04/20 20 06/05/2020 estim ated avera ge gluco se estimated average glucose 91 mg/dL [place] ge Gluco se is calcu lated using the equat ion AG = (28.7 x HgbA1 c) - 46.7 based on the guide lines estab lishe d by the ADA. Not Available [facility] ([facility]) [address] [facility] [address], [place], [address], 06/07/2020 13:53:16 06/04/20 20 06/05/2020 dhea- sulfa te, serum DHEA-sulfate 202 ug/dL 99-340 Not Available [facility] ([facility]) [address] [facility] [address], [place], [address], 06/07/2020 13:53:17 06/04/20 20 06/06/2020 testo stero ne, total , serum testosterone , total (female and children) 19.4 NG/dL 10.0-5 2.0 Preme nopau scottie 10-52 ng/dL (Grea ter than 18 years ) Postm enopa usal 6-30 ng/dL This test was devel oped and its perfo rmanc e patrica cteri stics were deter mined by [facility]. It has not been clear ed or appro michael by the FDA. The labor atory is regul ated under CLIA as quali fied to perfo rm high- compl exity testi ng. This test is used for clini lalitha purpo ses and shoul d not be regar ded as inves tigat ional or for resea rch. Not Available [facility] ([facility]) [address], [place], [address], 06/07/2020 13:53:17 06/04/20 20 06/07/2020 17-hy droxy proge stero ne, QN, serum 17-hydroxypr ogesterone, hplc-MS/MS 16.77 NG/dL <=206. 00 INTER PRETI VE INFOR MATIO N for 17-Hy droxy proge stero ne in femal es: Folli cular 15 to 70 ng/dL Lutea l 35 to 290 ng/dL Acces s compl ete set of age- and/o r gende r-spe cific refer ence inter vals for this test in the [facility] ([facility]). Test devel oped and patrica cteri stics deter mined by [facility]. See Compl iance State ment B: [email or web address] m/CS Perfo rmed By: [facility] [address] [facility] [place] [place] [address] Labor atory Direc tor: Betty palma MD Not Available [facility] ([facility] [place]) [address], [place], [address], 06/07/2020 13:53:18 Result Notes None recorded. Problems Name Problem SNOMED Code Status Onset Date Resolution Date Notes Provider Name and Address Organization Details Recorded Time Contracep tion care managemen t Active 2018 Encounter for contracept too management , unspecifie d;Recorded Elsewhere: No Locatio n: [facility] rce: EHR Chroni c: N Practice ID: [id number] Billa ble Time: 08:30:00 AM Not Available [facility] 0 16:14:33 Bleeding [id number] Active 2018 Abnormal uterine and vaginal bleeding, unspecifie d;Recorded Elsewhere: No Locatio n: [facility] rce: EHR Chroni c: N Practice ID: [id number] Billa ble Time: 10:30:00 AM Not Available [facility] 0 16:14:33 Problem Notes None recorded. Medical Equipment None Reported. Allergies Allergen ID Allergen Name Allergen Category Reaction Reaction Severity Criticality Documentation Date Start Date Code Code System Note Provider Name and Address Organization Details Recorded Time 1564 Substance with sulfonami de structure and antibacte rial mechanism of action (substanc e) medicatio n Not available Not available Not available 04/30/2020 [id number] SNOMED Sandra Ortiz [place], [place] - [facility] 0 14:03:20 Medications Name Sig Start Date Stop Date Status Note LastModified by Organization Details LastModified Time Nortrel 1/35 (28) 1 mg-35 mcg tablet 08/03 completed Not Available Not Available Not Available Nortrel 1/35 (21) 1 mg-35 mcg tablet take 1 tablet by oral route every day 2018 active Prescribed Elsewhere: No Locatio n: [facility] Mod michelle By: [email or web address] En counter DateTime: 07/07/2019 08:30:00 AM Not Available Not Available Not Available Tri-Spri ntec (28) 0.18 mg(7)/0. 215 mg(7)/0. 25 mg(7)-35 mcg tablet take 1 tablet by oral route every day 07/07 completed Prescribed Elsewhere: Yes Locati on: [facility] Mod michelle By: [email or web address] En counter DateTime: 04/04/2019 10:30:00 AM Not Available Not Available Not Available Fish Oil active Not Available Not Avai lable Not Available Women's One Daily 18 mg iron-400 mcg-500 mg Ca tablet active Prescribed Elsewhere: Yes Locati on: [facility] Mod michelle By: [email or web address] En counter DateTime: 04/04/2019 10:30:00 AM Not Available Not Available Not Available Fish Oil 1,000 mg (120 mg-180 mg) capsule active Prescribed Elsewhere: Yes Locati on: [facility] Mod michelle By: [email or web address] En counter DateTime: 04/04/2019 10:30:00 AM Not Available Not Available Not Available Vitals Date Recorded Body weight Body mass index (BMI) Body height Systolic blood pressure Diastolic blood pressure Provider Name and Address Organization Details Last Updated DateTime 04/30/2020 940736.8 g 39.3 kg/m2 165.1 cm 113 mm[Hg] 76 mm[Hg] Sandranely Ortiz [facility] 0 14:03:12 Date Recorded Body height Body mass index (BMI) Body weight Systolic blood pressure Diastolic blood pressure Provider Name and Address Organization Details Last Updated DateTime 08/03/2020 165.1 cm 39.3 kg/m2 298240.8 g 124 mm[Hg] 77 mm[Hg] Shiloh Hinson [facility] 0 09:50:00 Social History None recorded. Functional Status None recorded. Mental Status None recorded. Family History Relationship Description Onset Age of this Age Resolved Age Notes LastModified by Organization Details LastModified Time Mother Anemia [email or web address] Not available 04/30/2020 14:09:12 Mother Diabetes mellitus Type 1 [email or web address] Not available 2019 14:11:04 Mother Malignant tumor of breast [email or web address] Not available 2019 14:11:26 Mother Heart disease [email or web address] Not available 2019 14:11:44 Mother Hyperlipidem ia [email or web address] Not available 2019 14:12:11 Mother Hypertensive disorder [email or web address] Not available 2019 14:12:31 Mother Kidney disease [email or web address] Not available 2019 14:13:02 Father Diabetes mellitus [email or web address] Not available 2019 14:11:04 Father Hyperlipidem ia [email or web address] Not available 2019 14:12:11 Father Hypertensive disorder [email or web address] Not available 2019 14:12:31 Paternal Uncle Diabetes mellitus [email or web address] Not available 2019 14:11:04 Maternal Grandmother Malignant tumor of cervix [email or web address] Not available 2019 14:13:16 Paternal Grandmother Disease of liver [email or web address] Not available 2019 14:13:36 Maternal Grandfather Cerebrovascu lar accident [email or web address] Not available 12/2019 14:13:51 Notes:Father: high cholestro l, Diabetes mellitus, Hypertension Maternal grandfather: Stroke Maternal grandmother: Cancer, cervical Mother: Diabetes mellitus type 1, high cholesterol, Anemia, Cancer, breast, Heart disease, Hypertension, Renal disease Paternal grandmother: Liver disease Paternal uncle: Diabetes mellitus type 2 Medical History No medical history recorded. Gynecological History Statement/Question Response Current Control Method BCPs Date of LMP 01/19/2020 Obstetrics History GPAL:G 0 P 0 0 0 0 Past Encounters Encounter ID Performer Location Encounter Start Date Encounter Closed Date Diagnosis/Indication Diagnosis SNOMED-CT Code Diagnosis ICD10 Code Diagnosis Note [id number] Dima Romero MD [place] [address],[facility] [place] [address] 04/30/2020 13:36:26 04/30/2020 14:55:50 Amenorrhea 46405156 N91.2 discontinu e OCPs. She is going to return in a month for labs. She will follow up in 3 months to determine if Polycystic ovary syndrome 431474531 E28.2 [id number] Dima Romero MD [place] [address] [address] 08/03/2020 09:43:21 08/03/2020 10:45:10 Amenorrhea 12315617 N91.2 this patient [id number] d female presents for follow-up on laboratory evaluation . patient discontinu ed her oral contracept too pills. She began having menses again. She appears to be ovulating based on these she described to we discussed her labs. We discussed her thyroid results. She is going to see an endocrinol ogist. She may some subclinica l hypothyroi dism. We talked about mammograms and genetic testing. We spent over 15 minutes face-to-fa ce. She has a first-degr ee relative with a history of breast cancer. Health Concerns Section Related Observation LastModified by Organization Detai ls LastModified Time None Recorded Concern Status LastModified by Organization Details LastModified Time None Recorded Advance Directives Directive None Recorded Payers Encounter Date Sequence Insurance Name Policy Number Policy Ya Covered Member ID Ya Member ID Guarantor Name 04/30/2020 1 [facility] Yaneth Zurita [id number] Yaneth Zurita 08/03/2020 1 [facility] Yaneth Addtaisha [id number] Yaneth Zurita Notes Date Note Type Note Provider Name and Address Organization Details Recorded Time 04/30/2020 text/html this patient is a 31-year-old female who presents for amenorrhea. She has been on the pill for over a year began to miss periods about 3 months ago. She has the stigmata of PCOS. She recently lost 30 lb. Prior to starting the pill she had irregular bleeding. We talked about PCOS. Talked about the etiology, natural history, risk and treatment. We talked about getting and her stimulation of ovulation. She is interested in getting . She has not been evaluated correctly for PCOS. She is going to discontinue her OCPs for 3 months. We going to see if she ovulates on her own has a regular period. We going to conducted PCOS evaluation with laboratory evaluation. We spent over 30 minutes [id number]. More than 50% of that was counseling. Dima Romero MD [address], [place], [address], [facility] 04/30/2020 14:53:24 08/03/2020 text/html this patient is 30Year old female presents for follow-up on laboratory evaluation. patient discontinued her oral contraceptive pills. She began having menses again. She appears to be ovulating based on these she described to we discussed her labs. We discussed her thyroid results. She is going to see an cooker casing. She may some subclinical hypothyroidism. We talked about mammograms and genetic testing. We spent over 15 minutes [id number]. She has a first-degree relative with a history of breast cancer. Dima Romero MD [address], [place], [address], [facility] 08/03/2020 10:43:48 OBGyn Episode No OBEpisode recorded.
--- OUTSIDE RECORDS SUMMARY | 2024-10-28 20:34 | XMS_ITS | Referral Summary ---
Author Organization [facility] Address [address] [place] [address] Care Team Providers Care Continuous Improvement Manager Name Role Phone Maria Teresa Colon MD [...] easily managed by the pediatricians, and no mcfp effects have ever been demonstrated. Abrupt discontinuation [...] dystocia and hemorrhage. Reviewed risks of hypoglycemia. [facility] consult pending but do anticipate them [...] amniocentesis 02/08/24: FISH and TORCH serologies WNL, [employer] normal 03/07/2024 Left lateral ventricle measures within normal limits 04/03/2024 left lateral ventricle 11mm. Per Dr. Arshad plan for peds neuro consult Plan: [] Repeat US in 1 week [] [facility] RN to help arrange neuro consult Assessment & Plan (02/18/2024 3:04 PM CDT): Unilateral mild ventriculomegaly was noted on ultrasound 02/06; the left ventricle measures 11 mm in the largest measurement. No other intracranial abnormalities were identified. The 3rd and 4th ventricles were not dilated. S/p amniocentesis 02/08/24: FISH and TORCH serologies WNL, [employer] pending Counseling 02/16/24: We discussed the differential [...] CMV, parvovirus, and toxoplasma gondii PCR negative. [employer] is pending. Plan: [] Plan for growth ultrasound on 03/07, and if progression of ventriculomegaly is identified, referral to the [facility] will be placed. Supervision of high-risk pre gnancy, third trimester 02/09/2024 06/01/2024 Overview (04/04/2024): [x] Co-management [x] Blue Team Referring Provider: Sandra Thorne [phone] [] or Medicare Insurance [x] Dating Criteria: [...] [] MOD: TBD [] Place of delivery: [facility] with primary OB Supervision of other [...] provide a measurement today. amniocentesis completed 02/07. [employer] nml, other tests nml/neg MFM follow-up and growth 03/07--normalized 04/03 Left unilateral ventriculomegaly noted again on US (11 mm). M to coordinate [facility] consult and US next week. -IOL sched 04/18/2024 @ 2000, pt aware - Mild Polyhydramnios on US 04/03, persists 04/13 [x] Initial BMI: 36.01 [x] Labs: Labs: Lab Results Component Value Date ABORH AB Positive 09/14/2023 IDCOOMB Negative 09/14/2023 [id number] Nonreactive 09/14/2023 LABRPR Nonreactive 09/14/2023 RUBELIGG Reactive [...] longer needed),04/20/2024(Deferred: No longer needed) Tdap 02/08/2024 Social History Tobacco Use Types Packs/Day Years Used Date Smoking Tobacco: Never Passive Smoke Exposure: Never Smokeless Tobacco: Never Tobacco Cessation:Counseling Given: No [facility] Utilities Answer Date Recorded In the past 12 months has e [employer], gas, oil, or water [email or web address] threatened to shut off services in your [...] often do you attend chur ch or anglican services? Never 04/21/2024 Do you belong to any clubs o r organizations such as buddhist groups, unions, fraternal or athletic groups, or [...] things needed for daily living? No 04/21/2024 [place] Depression Scale Answer Date Recorded [place] Depression Scale Total 0 06/01/2024 The thought [...] any time in the past 12 m [facility], were you homeless or living in a senior living (including now)? 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 Not on file Not on file Not on file Last Filed Vital Signs Vital Sign Reading [...] 06/21/2024 2:59 PM CDT Plan of Treatment Not on file Procedures Procedure Name Priority Date/Time Associated Diagnosis Comments HIGH RISK HPV DNA DETECTION WITH GENOTYPING Routine 06/01/2024 12:40 PM CDT Encounter for routine follow-up HEPATITIS C ANTIBODY Routine 09/14/2023 9:18 AM PRIVATE PILOT Supervision of other normal , antepartum from Last 3 Months or Most Recently Relevant to Health Maintenance Results * High Risk HPV DNA Detection with Genotyping (Molecular component) (06/01/2024 12:40 PM CDT) HPV HR 16 Not Detected Not Detected [facility] Comment:Collection date/time has been modified to: 12:40:00. Previous collection date/time: 12:40:00. Collection date/time has been modified to: 12:40:00. Previous collection date/time: 12:40:00. HPV HR 18 Not Detected Not Detected [facility] Comment:Collection date/time has been modified to: 12:40:00. Previous collection date/time: 12:40:00. Collection date/time has been modified to: 12:40:00. Previous collection date/time: 12:40:00. HPV HR Non 16/18 Not Detected Not Detected [facility] Comment: Interpretive Data Nucleic acid amplification for [...] this test have been verified by the [facility] Molecular Infectious Disease laboratory. Correlate with separately [...] STOOLS ORDERABLES Edited Result - Final ENRIQUE [facility] [place] [address] [facility] * Hepatitis C antibody Blood (09/14/2023 9:18 AM PRIVATE PILOT) Hep C Ab Nonreactive Nonreactive [facility] Comment:Antibodies to HCV no t detected. Does NOT exclude the possibility of recent exposure to HCV. Current interpretive data was last revised on 22 Blood 09/14/2023 9:18 AM PRIVATE PILOT 09/14/2023 10:34 AM PRIVATE PILOT us Scarlet Mcleod MD LAB MICROBIOLOGY - NERAL ORDERABLES Final Result [facility] [place] [address] from Last 3 Months or Most Recently Relevant to Health Maintenance Insurance [facility] [employer] PLUS [facility] [employer] PL[employer] Advance Directives For more information, please contact: [phone] * Full Code (Latest Code Status on File) Date Activated Date Inactivated Comments 04/20/2024 7:05 AM 04/23/2024 5:39 PM * Full Code Date Activated Date Inactivated Comments 04/18/2024 9:05 PM 04/20/2024 7:05 AM Full CPR in case of cardiopulmonary arrest Care Teams Continuous Improvement Manager Relationship Specialty Start Date End Date Maria Teresa Colon MD [address] [place] [id number] PCP - General Family Medicine 06/25/23
--- OUTSIDE RECORDS SUMMARY | 2024-10-28 20:34 | XMS_ITS | Data Portability ---
Author Organization [email or web address], Main Office Address [address] [place] [address] Care Team Providers Care Language Instructor Name Role Phone ANNABELLE PRESCOTT Primary Care Provider Assessment No assessment recorded. Plan of Treatment Reminders Order Date Submit Date Provider Last Modified By Organization Details Last Modified Time Details Appointments None recorded. Lab dhea-sulfat e, serum 2022 023 [facility], [address] [place] [address], [address], [address], 3 12:58:40 testosteron e, free + total, serum 2022 023 [facility], [address] [place] [address] [place], [address], 3 12:58:39 insulin, serum 2022 023 [facility], [address] [place] [address] [address], [address], 3 12:58:39 lh + FSH, serum 2022 023 [facility], [address] [facility], [address], [place], [address], 3 13:00:53 estradiol, serum 2022 023 [facility], [address] [facility], [address], [place], [address], 3 13:00:53 progesteron e, serum 2022 023 [facility], [address] [place] [address], [address], [place], [address], 3 13:00:53 TSH + free T4, serum 2022 023 [facility], [address] [place] [address], [address], [place], [address], 3 12:51:10 T3, free, serum or plasma 2022 023 [facility], [address] [place] [address], [address], [place], [address], 3 12:51:11 thyroid peroxidase (tpo) Ab, serum 2022 023 [facility], [address] [place] [address], [address], [place], [address], 3 12:51:11 CMP, serum or plasma 2022 023 [facility], [address] [place] [address], [address], [place], [address], 3 12:51:10 Referral None recorded. Procedures None recorded. Surgeries None recorded. Imaging None recorded. Medication Orders Victoza 3-Lino 0.6 mg/0.1 mL (18 mg/3 mL) subcutaneou s pen injector 2022 023 [id number] [place] [address], [place], [address], 3 15:49:08 metformin ER 500 mg tablet,exte nded release 24 hr 2022 023 [facility] In [facility] [address] , [place], [address], 3 12:58:35 Mounjaro 5 mg/0.5 mL subcutaneou s pen injector 2022 023 [facility] [place], [address], [place], [address], 3 15:53:39 metformin ER 500 mg tablet,exte nded release 24 hr 2022 023 [facility] [address] In [facility], [address], [place], [address], 3 16:05:32 Unithroid 25 mcg tablet 2022 023 [facility] JEAN [address] In [facility], [address], [place], [address], 3 16:05:32 Patient TargetsNo targets recorded. Patient InstructionsNo instructions recorded. Reason for Referral None Reported. Results Created Date Observation Date Name Description Value Unit Range Abnormal Flag Note LastModifiedBy Organization Detail LastModifiedTime Result Notes None recorded. Problems Name Problem SNOMED Code Status Onset Date Resolution Date Notes Provider Name and Address Organization Details Recorded Time Polycystic ovary syndrome 531548546 Active 2021 Not Available [facility] 3 15:01:52 Iron deficiency 77951051 Active 2021 Not Available [facility] 3 15:01:52 Hypothyroidis m 82515143 Active 2021 Not Available [facility] 3 15:01:52 Obesity 019202514 Active 2021 Not Available [facility] 3 15:01:52 Prediabetes 517358405 Active 2022 Not Available [facility] 3 15:01:52 Problem Notes None recorded. Medical Equipment None Reported. Allergies Allergen ID Allergen Name Allergen Category Reaction Reaction Severity Criticality Documentation Date Start Date Code Code System Note Provider Name and Address Organization Details Recorded Time 9373 Substance with sulfonami de structure and antibacte rial mechanism of action (substanc e) medicatio n Not available Not available Not available 11/25/2022 53881 8003 SNOMED Not Available [facility] 3 05:16:19 Medications Name Sig Start Date Stop Date Status Note LastModified by Organization Details LastModified Time phentermine 15 mg capsule TAKE 1 CAPSULE BY MOUTH EVERY DAY IN THE MORNING 12/31 completed Not Available Not Available Not Available Nortrel 35 (28) 1 mg-35 mcg tablet 10/15 completed Not Available Not Available Not Available dexamethaso ne 1 mg tablet TAKE 1 TABLET NEEDED BY ORAL ROUTE AT BEDTIME FOR 1 DAY. active Not Available Not Available No t Available Unithroid 25 mcg tablet TAKE 2 TABLETS BY MOUTH IN THE MORNING ON WEDNESDAY, WEDNESDAY , AND WEDNESDAY AND 1 TAB ALL OTHER DAYS active Not Available Not Available No t Available norethindro ne acetate 5 mg tablet 12/29 completed Not Available Not Available Not Available metformin ER 500 mg tablet,exte nded release 24 hr Take 1 tablet every day by oral route at dinner for 90 days. 2022 active Not Available Not Available Not Avai lable Denta 5000 Plus 1.1 % cream 12/31 completed Not Available Not Available Not Available naltrexone HCl (bulk) 100 % powder take 1 mg at bedtime daily for 90 days 12/29 completed Not Available Not Available Not Available Victoza 3-Lino 0.6 mg/0.1 mL (18 mg/3 mL) subcutaneou s pen injector 04/28 completed Not Available Not Available Not Available Mounjaro 5 mg/0.5 mL subcutaneou s pen injector Inject by subcutane ous route for 28 days. active Not Available Not Available No t Available Vitals Date Recorded Body mass index (BMI) Body height Oxygen saturation Oxygen saturation in Arterial blood by Pulse oximetry Systolic blood pressure Diastolic blood pressure Provider Name and Address Organization Details Last Updated DateTime 3 35.7 kg/m2 172.72 cm 98 % 98 % 117 mm[Hg] 80 mm[Hg] Not Available [facility] 3 05:00:20 Date Recorded Heart rate Body temperature Body weight Provider Name and Address Organization Details Last Updated DateTime 11/25/2022 76 /min 97.4 [degF] 844242.77 g Not Available [facility] 11/25/2022 05:00:21 Date Recorded Body height Provider Name an d Address Organization Details Last Updated DateTime 12/31/2022 172.72 cm JAYDE Casillas [place] [email or web address] 12/31/2022 12:34:34 Date Recorded Body mass index (BMI) Body weight Provider Name and Address Organization Details Last Updated DateTime 12/31/2022 36.8 kg/m2 151020.64 g JAYDE Casillas [employer] - [email or web address] 12/31/2022 12:35:43 Date Recorded Body temperature Provider Name a nd Address Organization Details Last Updated DateTime 12/31/2022 97.6 [degF] Gretel Trinh [facility] [place] - [email or web address] 12/31/2022 12:37:32 Date Recorded Heart rate Provider Name an d Address Organization Details Last Updated DateTime 12/31/2022 83 /min JAYDE Casillas [place] - [email or web address] 12/31/2022 12:37:48 Date Recorded Body height Provider Name an d Address Organization Details Last Updated DateTime 04/29/2023 172.72 cm Giselle Herzog [facility] [employer] [employer] 04/29/2023 15:44:07 Date Recorded Body mass index (BMI) Body weight Provider Name and Address Organization Details Last Updated DateTime 04/29/2023 35.6 kg/m2 429332.61 g Giselle Herzog [facility] [email or web address] 04/29/2023 15:44:14 Date Recorded Heart rate Provider Name an d Address Organization Details Last Updated DateTime 04/29/2023 99 /min Giselle Hubbard [facility] [employer] 04/29/2023 15:44:31 Date Recorded Systolic blood pressure Diastolic blood pressure Provider Name and Address Organization Details Last Updated DateTime 12/31/2022 127 mm[Hg] 85 mm[Hg] JAYDE Casillas [place] - [email or web address] 12/31/2022 12:37:40 Date Recorded Systolic blood pressure Diastolic blood pressure Provider Name and Address Organization Details Last Updated DateTime 04/29/2023 140 mm[Hg] 86 mm[Hg] Giselle DELCID - [email or web address] 04/29/2023 15:44:26 Social History Question Answer Notes LastModified by Organizat ion Details LastModified Time Tobacco Smoking Status Never Smoker Not Available [facility] 11/25/2022 04:55:41 What Is Your Level Of Alcohol Consumption? Occasional [id number] Information not available 11/25/2022 What Is Your Level Of Caffeine Consumption? Moderate MIGRATION.[id number] Information not available 11/25/2022 In The 14 Days Before Symptom Onset, Have You Had Close Contact With A Laboratory-confir med COVID-19 While That Case Was Ill? No [id number] Information not available 11/25/2022 In The 14 Days Before Symptom Onset, Have You Had Close Contact With A Person Who Is Under Investigation For COVID-19 While That Person Was Ill? No [id number].[id number] [id number] Information not available 11/25/2022 What Type Of Diet Are You Following? REGULAR MIGRATION.79861 87779 Information not available 11/25/2022 What Is The Highest Grade Or Level Of School You Have Completed Or The Highest Degree You Have Received? 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 MIGRATION.[id number] Information not available 11/25/2022 Do You Use Any Illicit Or Recreational Drugs? No MIGRATION.03752 67685 Information not available 11/25/2022 Has Tobacco Cessation Counseling Been Provided? No MIGRATION.68669 37779 Information not available 11/25/2022 Have You Recently Traveled Abroad? No MIGRATION.04095 50183 Information not available 11/25/2022 Do You Have Any Dietary Restrictions? No MIGRATION.43622 [id number] Information not available 11/25/2022 Sex: Female Functional Status None recorded. Mental Status None recorded. Family History Relationship Description Onset Age of this Age Resolved Age Notes LastModified by Organization Details LastModified Time Mother Diabetes mellitus [id number] Not available 11/25/2022 05:00:08 Mother Heart disease [id number] [id number] Not available 11/25/2022 05:00:08 Mother Kidney disease [id number].810 [id number] Not available 11/25/2022 05:00:08 Mother Malignant tumor of breast [id number].527 [id number] Not available 11/25/2022 05:00:08 Father Diabetes mellitus [id number].246 [id number] Not available 11/25/2022 05:00:08 Medical History Condition Response HYPOTHYROIDISM Y HAVE YOU BEEN HOSPITALIZED OR SEEN IN [facility] IN THE PAST YEAR ? Y OBESITY Y NO SIGNIFICANT PAST MEDICAL HISTORY Y ANEMIA/BLOOD DISORDER Y AUTOIMMUNE DISEASE Y Gynecological HistoryNo gynecological history recorded. Obstetrics History GPAL:G 0 P 0 0 0 0 Past Encounters Encounter ID Performer Location Encounter Start Date Encounter Closed Date Diagnosis/Indication Diagnosis SNOMED-CT Code Diagnosis ICD10 Code Diagnosis Note [id number] _ATHENA_M IGRATION_ DEFAULT_1 _1 , 05/27/2021 00:00:00 05/27/2021 11:07:42 [id number] [facility] [address] [place] [address] 10/03/2021 00:00:00 10/03/2021 10:21:34 [id number] [facility] [address] [place] [address] 12/26/2021 00:00:00 12/26/2021 09:28:39 [id number] [facility] [address] [place] [address] 06/29/2022 00:00:00 06/29/2022 17:22:05 [id number] Monica Batres MD [facility] [address] [place] [address] 12/31/2022 12:26:50 12/31/2022 13:04:57 Hypothyroidism 67648830 E03.9 FT4 in ideal range- continue on unithroid 25 mcg daily. She was reminded to take her unithroid on empty stomach with glass of water and wait one hour to eat or have her coffee in morning and up to 4 hours if ever taking any heartburn or reflux medication s to help optimize absorption . Discussed paleo like diet with restrictio n of GMOs to help with energy and to optimize absorption of vitamins and minerals and reduce inflammati on. Obesity 159151384 E66.9 Will discontinu e phentermin e as this has not helped with weight loss but has helped with focus. Patient recently dx with ADHD and needing to go on stimulant so cannot be on phentermin e concurrent ly with the stimulant. Recommende d GLP1 agonist therapy as she is having trouble at times with cravings of sweets and portion control. 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 She has no hx of pancreatit is or medullary thyroid cancer and is willing to trial on a GLP1 agonist therapy. She was advised to contact clinic if she experience s any nausea, vomiting or significan t thyroid pain / swelling or abdominal pain so we can discuss and discontinu e and potentiall y look to other therapy. Will trial on victoza 0.6 mg SQ daily x 1 week then increase to 1.2 mg SQ daily with largest meal of that day as tolerated. Polycystic ovary syndrome 144812314 E28.2 Will trial on low dose metformin ER 500 mg daily with dinner. Her hormone levels have fluctuated and patient struggling with ovulatory function- insulin up to 25 uU/ml from 10 uU/ml and DHEAs now over 200 ug/mL with weight gain. Modest weight loss of 2-5% of total body weight can help restore ovulatory menstrual periods in obese patients with PCOS. A decrease of 400-500 calories daily, along with 150 minutes of exercise per week, can cause ovulation. Patient was encouraged to continue to maintain diet but not to go toward an extreme form of ketogenic diet. Recommende d up to 60 grams of carbs a day split into 6 small 10 gram carb meals or three larger 20 gram carb meals in addition to up to 70 grams of protein daily split into 10-15 grams for 5-6 smaller meals. The recommende d diet should be one of which she can incorporat e on a daily basis that will not modulate her lifestyle - discussed a diet of increased fiber; decreased refined carbohydra carlo, trans fats, and saturated fats with focus on monounsatu rated fats such as unprocesse d chicken, turkey, nuts (excluding peanuts) and beans. Spent up to 26 minutes preparing to see the patient (eg, review of tests), obtaining and/or reviewing separately obtained history, performing a medically appropriat e examinatio n and evaluation , counseling and educating the patient, ordering medication s, tests, along with documentin g clinical informatio n in the electronic health record, independen tly interpreti ng results and communicat ing results to the patient. RTC in 6 months. Patient was provided a handwritte n lab order which contains our fax number. If she chooses to go outside of the [facility] system to obtain labwork she was advised to provide our fax number and my informatio n to the lab she will be obtaining labwork from in order to have her labs properly forwarded over for me to review so there is no loss of follow up due to use of outside network. She was also advised to contact our clinic informing us that she has completed her labwork so we are aware we will need to reach out to the appropriat e laboratory to request her results be forwarded to us so I might have the ability to review and make further medical decision making in her case. She voiced understand ing. [id number] Monica Batres MD [facility] [address] [place] [address] 04/29/2023 15:26:55 04/29/2023 16:35:39 Prediabetes 359703218 R73.03 glucose over 100 mg/dL fasting- she has no hx of pancreatit is or medullary thyroid cancer and is willing to trial on a GLP1 agonist therapy. She was advised to contact clinic if she experience s any nausea, vomiting or significan t thyroid pain / swelling or abdominal pain so we can discuss and discontinu e and potentiall y look to other therapy. Will trial on mounjaro 2.5 mg SQ weekly x 4-8 weeks then increase to 5 mg SQ weekly with largest meal of that day as tolerated. Continue metformin for insulin sensitizat ion and patient tolerating well. Recommende d she incorporat e natural insulin field laborer s such as pears, apples, cinnamon, home and sweet potatoes to help mobilize her endogenous insulin. Recommende d up to 150 minutes of moderate level activity/e xercise weekly. Polycystic ovary syndrome 068228991 E28.2 Modest weight loss of 2-5% of total body weight can help restore ovulatory menstrual periods in obese patients with PCOS. A decrease of 400-500 calories daily, along with 150 minutes of exercise per week, can cause ovulation. Patient was encouraged to continue to maintain diet but not to go toward an extreme form of ketogenic diet. Recommende d up to 100 grams of carbs a day split into 6 small 15-20 gram carb meals in addition of 120 grams of protein split into a 20-30 grams for 4-5 smaller meals. The recommende d diet should be one of which she can incorporat e on a daily basis that will not modulate her lifestyle - discussed a diet of increased fiber; decreased refined carbohydra carlo, trans fats, and saturated fats with focus on monounsatu rated fats such as unprocesse d chicken, turkey, nuts (excluding peanuts) and beans. Hypothyroidism 99727828 E03.9 FT4 in low normal range- will uptitrate unithroid to two tablets on Wed/Wed/ and one tablet all other days of the week. She was reminded to take her unithroid on empty stomach with glass of water and wait one hour to eat or have her coffee in morning and up to 4 hours if ever taking any heartburn or reflux medication s to help optimize absorption . Discussed paleo like diet with restrictio n of GMOs to help with energy and to optimize absorption of vitamins and minerals and reduce inflammati on. Spent up to 25 minutes preparing to see the patient (eg, review of tests), obtaining and/or reviewing separately obtained history, performing a medically appropriat e examinatio n and evaluation , counseling and educating the patient, ordering medication s, tests, along with documentin g clinical informatio n in the electronic health record, independen tly interpreti ng results and communicat ing results to the patient. Patient can be followed by PCP - she/he is aware of my resignatio n and last day of July 09. If needed his/her PCP can refer patient to another endocrinol ogist in the area. All questions /concerns answered and refills necessary at visit today. Health Concerns Section Related Observation LastModified by Organization Detai ls LastModified Time None Recorded Concern Status LastModified by Organization Details LastModified Time None Recorded Advance Directives Directive None Recorded Payers Encounter Date Sequence Insurance Name Policy Number Policy Ya Covered Member ID Ya Member ID Guarantor Name 12/31/2022 1 [facility] Yaneth Zurita [id number] Yaneth Velasco 04/29/2023 1 [facility] Yaneth Zurita [id number] Yaneth Velasco Notes Date Note Type Note Provider Name and Address Organization Details Recorded Time 12/31/2022 text/html 32 yo female com es in for follow up in management of PCOS, hypothyroidism and weight gain. last seen in Jun at that time we had patient continue on unithroid 25 mcg daily and LDN at bedtime. we continued phentermine 15 mg daily. She has gained 7 pounds since her last visit. Her blood sugars are running higher in the morning. She is taking the phentermine more for focus and not for weight loss. She ran out of the phentermine in July - she cannot take anything for her ADHD since she was on phentermine. She would like to look into getting in 2023. labs from 12/29/22:TSH of 2.910 uIU/mlFT4 of 1.2 ng/dLglucose 88 mg/dLCr normalLFT Normaltestosterone 32 ng/dL (up from 10 ng/dL in 2021)dheas 248 ug/ml ( up from 100 ng/dL)insulin 23.5 uU/ml (up from 10 uU/ml) Monica Batres MD [address], [address], [place], [address], [facility] 12/31/2022 13:15:34 04/29/2023 text/html 32 yo female com es in for follow up in management of hypothyroidism, obesity, prediabetes and PCOS. last seen in December at that time we transitioned to victoza for weight loss and metformin for PCOS. Insurance would not cover the victoza. She continues to struggle to lose weight and she is struggling with ovulatory function. we added unithroid 25 mcg daily and she initially had more energy and focus overall since start of therapy. However she has noticed she is getting used to the low dose and feeling more fatigue. Patient has lost 8 pounds. labs from 03/29/23:TSH of 4.09 uIU/mlFT4 of 1.1 ng/dLglucose 101 mg/dLCr normalLFT normalinsulin 18 uU/mlTPO 15 IU/mlFT3 2.9 pg/mLtestosterone 15 ng/dLestradiol 34.9 pg/mLprogesterone <10 ng/mLLH/FSH normal Monica Batres MD [address], [address], [place], [address], [facility] 04/29/2023 19:37:44 OBGyn Episode No OBEpisode recorded.
[2024-10-28 20:38] VITALS: BP 118/69; PULSE 120; RESP 16; TEMP 36.6; O2SAT 99
[2024-10-28 20:50] VITALS: RESP 18; O2SAT 97
[2024-10-28 21:37] LABS: Influenza A QL RT-PCR Positive (Negative); Influenza B QL RT-PCR Negative (Negative); RSV RNA, RT-PCR Negative (Negative); SARS-CoV-2 RNA PCR Negative (Negative)
--- OUTSIDE RECORDS SUMMARY | 2024-10-28 22:05 | XMS_ITS | Referral Summary ---
Author Organization [facility] Address [address] [place] [address] Care Team Providers Care Executive Meeting Manager Name Role Phone Maria Teresa Colon [...] dystocia and hemorrhage. Reviewed risks of hypoglycemia. [facility] consult pending but do anticipate them changing [...] amniocentesis 02/08/24: FISH and TORCH serologies WNL, MENTAL HYGIENE CONSULTANT normal 03/07/2024 Left lateral ventricle measures within normal limits 04/03/2024 left lateral ventricle 11mm. Per Dr. Arshad plan for peds neuro consult Plan: [] Repeat US in 1 week [] [facility] RN to help arrange neuro consult Assessment & Plan (02/18/2024 3:04 PM CDT): Unilateral mild ventriculomegaly was noted on ultrasound 02/06; the left ventricle measures 11 mm in the largest measurement. No other intracranial abnormalities were identified. The 3rd and 4th ventricles were not dilated. S/p amniocentesis 02/08/24: FISH and TORCH serologies WNL, MENTAL HYGIENE CONSULTANT pending Counseling 02/16/24: We discussed the differential [...] CMV, parvovirus, and toxoplasma gondii PCR negative. MENTAL HYGIENE CONSULTANT is pending. Plan: [] Plan for growth ultrasound on 03/07, and if progression of ventriculomegaly is identified, referral to the Care [facility] will be placed. Supervision of high-risk pre gnancy, third trimester 02/09/2024 06/01/2024 Overview (04/04/2024): [x] Co-management [x] Blue Team Referring Provider: Sandra Thorne [phone] [] or Medicare Insurance [x] Dating Criteria: [...] [] MOD: TBD [] Place of delivery: [facility] with primary OB Supervision of [...] provide a measurement today. amniocentesis completed 02/07. MENTAL HYGIENE CONSULTANT nml, other tests nml/neg MFM follow-up and growth 03/07--normalized 04/03 Left unilateral ventriculomegaly noted again on US (11 mm). M to coordinate [facility] consult and US next week. -IOL sched 04/18/2024 @ 2000, pt aware - Mild Polyhydramnios on US 04/03, persists 04/13 [x] Initial BMI: 36.01 [x] Labs: Labs: Lab Results Component Value Date ABORH AB Positive 09/14/2023 IDCOOMB Negative 09/14/2023 [id number] Nonreactive 09/14/2023 LABRPR Nonreactive 09/14/2023 RUBELIGG Reactive [...] Smokeless Tobacco: Never Tobacco Cessation:Counseling Given: No [facility] Utilities Answer Date Recorded In the past 12 months has e [employer], gas, oil, or water [employer] threatened to shut off services in your [...] often do you attend chur ch or yazidism services? Never 04/21/2024 Do you belong to any clubs o r organizations such as scientologist groups, unions, fraternal or athletic groups, or [...] things needed for daily living? No 04/21/2024 [place] Depression Scale Answer Date Recorded [place] Depression Scale Total 0 06/01/2024 The thought [...] any time in the past 12 m [facility], were you homeless or living in a usp (including now)? 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 Previous collection date/time: 12:40:00. Collection date/time has been modified to: 12:40:00. Previous collection date/time: 12:40:00. HPV HR 18 Not Detected Not Detected [facility] Comment:Collection date/time has been modified to: [...] test have been verified by the [facility] Molecular Infectious Disease laboratory. Correlate with separately [...] STOOLS ORDERABLES Edited Result - Final [facility] [place] [address] [facility] * Hepatitis C antibody Blood (09/14/2023 9:18 AM AT RISK PARAPROFESSIONAL) Hep C Ab Nonreactive Nonreactive [facility] Comment:Antibodies to HCV no t detected. Does NOT exclude the possibility of recent exposure to HCV. Current interpretive data was last revised on 22 Blood 09/14/2023 9:18 AM AT RISK PARAPROFESSIONAL 09/14/2023 10:34 AM AT RISK PARAPROFESSIONAL us Scarlet Mcleod MD LAB MICROBIOLOGY - NERAL ORDERABLES Final Result [facility] Department [place] [address] from Last 3 Months or Most Recently Relevant to Health Maintenance Insurance [facility] CHOICE PLUS [facility] CHO[facility] PLUS Advance Directives For more information, please contact: [phone] * Full Code (Latest Code Status on File) Date Activated Date Inactivated Comments 04/20/2024 7:05 AM 04/23/2024 5:39 PM * Full Code Date Activated Date Inactivated Comments 04/18/2024 9:05 PM 04/20/2024 7:05 AM Full CPR in case of cardiopulmonary arrest Care Teams Executive Meeting Manager Relationship Specialty Start Date End Date Maria Teresa Colon MD [address] [place] [id number] PCP - General Family Medicine 06/25/23
--- OUTSIDE RECORDS SUMMARY | 2024-10-28 22:05 | XMS_ITS | Clinical Summary ---
Author Organization [facility] Address [address] [place] [address] Care Team Providers Care Prison Guard Name Role Phone Maria Teresa Colon MD [...] dystocia and hemorrhage. Reviewed risks of hypoglycemia. [facility] consult pending but do anticipate them changing [...] amniocentesis 02/08/24: FISH and TORCH serologies WNL, BOAT RIGGER normal 03/07/2024 Left lateral ventricle measures within normal limits 04/03/2024 left lateral ventricle 11mm. Per Dr. Arshad plan for peds neuro consult Plan: [] Repeat US in 1 week [] [facility] RN to help arrange neuro consult Assessment & Plan (02/18/2024 3:04 PM CDT): Unilateral mild ventriculomegaly was noted on ultrasound 02/06; the left ventricle measures 11 mm in the largest measurement. No other intracranial abnormalities were identified. The 3rd and 4th ventricles were not dilated. S/p amniocentesis 02/08/24: FISH and TORCH serologies WNL, BOAT RIGGER pending Counseling 02/16/24: We discussed the differential [...] CMV, parvovirus, and toxoplasma gondii PCR negative. BOAT RIGGER is pending. Plan: [] Plan for growth ultrasound on 03/07, and if progression of ventriculomegaly is identified, referral to the Care [facility] will be placed. Supervision of high-risk pre gnancy, third trimester 02/09/2024 06/01/2024 Overview (04/04/2024): [x] Co-management [x] Blue Team Referring Provider: Sandra Thorne [phone] [] or Medicare Insurance [x] Dating Criteria: [...] [] MOD: TBD [] Place of delivery: [facility] with primary OB Supervision of [...] provide a measurement today. amniocentesis completed 02/07. BOAT RIGGER nml, other tests nml/neg MFM follow-up and growth 03/07--normalized 04/03 Left unilateral ventriculomegaly noted again on US (11 mm). M to coordinate [facility] consult and US next week. -IOL sched 04/18/2024 @ 2000, pt aware - Mild Polyhydramnios on US 04/03, persists 04/13 [x] Initial BMI: 36.01 [x] Labs: Labs: Lab Results Component Value Date ABORH AB Positive 09/14/2023 IDCOOMB Negative 09/14/2023 [id number] Nonreactive 09/14/2023 LABRPR Nonreactive 09/14/2023 RUBELIGG Reactive [...] Smokeless Tobacco: Never Tobacco Cessation:Counseling Given: No [employer] Utilities Answer Date Recorded In the past 12 months has [employer], oil, or water [employer] threatened to shut off services in your [...] How often do you attend chur or yazidi services? Never 04/21/2024 Do you belong to any clubs o r organizations such as latter-day groups, unions, fraternal or athletic groups, or [...] things needed for daily living? No 04/21/2024 [place] Depression Scale Answer Date Recorded [place] Depression Scale Total 0 06/01/2024 The thought of harming myself has occurred to me . Never 06/01/2024 Housing Stability Vital Sign Answer Atrhur e Recorded In the last 12 months, was t here a time when you were not able to pay the mortgage or rent on time? No 04/21/2024 In the past 12 months, how m any times have you moved where you were living? 1 04/21/2024 At any time in the past 12 m onths, were you homeless or living in a fpc (including now)? 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 [facility] for failure to [...] HEPATITIS C ANTIBODY Routine 09/14/2023 9:18 AM JAVA SYSTEMS ANALYST Supervision of other normal , antepartum from Last 3 Months or Most Recently Relevant to Health Maintenance Results * High Risk HPV DNA Detection with Genotyping (Molecular component) (06/01/2024 12:40 PM CDT) HPV HR 16 Not Detected Not Detected [facility] Comment:Collection date/time has been modified to: 12:40:00. Previous collection date/time: 12:40:00. Collection date/time has been modified to: 12:40:00. Previous collection date/time: 12:40:00. HPV HR 18 Not Detected Not [facility]ed [facility] Comment:Collection date/time has been modified to: 12:40:00. Previous collection date/time: 12:40:00. Collection date/time has been modified to: 12:40:00. Previous collection date/time: 12:40:00. HPV HR Non 16/18 Not Detected Not Detected [facility] Comment: Interpretive Data Nucleic acid amplification for [...] this test have been verified by the [facility] Molecular Infectious Disease laboratory. Correlate with [...] Edited Result - Final [facility] Department [place] [address] [facility] * Hepatitis C antibody Blood (09/14/2023 9:18 AM JAVA SYSTEMS ANALYST) Hep C Ab Nonreactive Nonreactive [facility] Comment:Antibodies to HCV no t detected. Does NOT exclude the possibility of recent exposure to HCV. Current interpretive data was last revised on 22 Blood 09/14/2023 9:18 AM JAVA SYSTEMS ANALYST 09/14/2023 10:34 AM JAVA SYSTEMS ANALYST us Scarlet Mcleod MD LAB MICROBIOLOGY - NERAL ORDERABLES Final Result [facility] Department [place] [address] from Last 3 Months or Most Recently Relevant to Health Maintenance Insurance [facility] [place] [employer] Address: [place] [address] [facility] CHOICE PLUS [facility] [place] [employer] Address: [address] [place] [address] Advance Directives For more information, please contact: [phone] * Full Code (Latest Code Status on File) Date Activated Date Inactivated Comments 04/20/2024 7:05 AM 04/23/2024 5:39 PM * Full Code Date Activated Date Inactivated Comments 04/18/2024 9:05 PM 04/20/2024 7:05 AM Full CPR in case of cardiopulmonary arrest Care Teams Prison Guard Relationship Specialty Start Date End Date Maria Teresa Colon MD [address] [place] [phone] PCP - General Family Medicine 06/25/23
--- OUTSIDE RECORDS SUMMARY | 2024-10-28 22:05 | XMS_ITS | Encounter Summary ---
Author Organization [facility] Address [address] [place] [address] Care Team Providers Care Swage Tender Name Role Phone Maria Teresa Colon MD Primary Care Provider Encounter Details Date Type Department Care Team (Late st Contact Info) Description 04/28/[address] [address] Denisse Pizarro RN Social History Tobacco Use Types Packs/Day Years Used Date Smoking Tobacco: Never Passive Smoke Exposure: Never Smokeless Tobacco: Never [facility] Utilities Answer Date Recorded In the past 12 months has [employer], gas, oil, or water company threatened [...] often do you attend chur ch or scientology services? Never 04/21/2024 Do you belong to any clubs o r organizations such as restorationism groups, unions, fraternal or athletic groups, or [...] any time in the past [address] [facility], were you homeless or living in a correction (including now)? 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
--- NOTE | 2024-10-28 22:39 | ED_ITS ---
HPI - Fever General Chief Complaint: Fever Stated Complaint: fever Time Seen by Provider: 10/28/24 21:57 Source: patient Mode of arrival: ambulatory Limitations: no limitations History of Present Illness HPI Narrative: This is a 34-year-old female that presents to the emergency department for cold symptoms. Present over the last couple of days. Reports fever, cough, congestion, sore throat. Reports similar symptoms in her family members Related Data Home Medications ?Medication ?Instructions ?Recorded ?Confirmed ?Last Taken ?Type Sprintec (28) 1 tab/day PO DAILY 11/14/19 11/14/19 Unknown History Allergies Allergy/AdvReac Type Severity Reaction Status Date / Time Sulfa (Sulfonamide Allergy Rash Verified 10/28/24 20:51 Antibiotics) Review of Systems Review of Systems: CONSTITUTIONAL: Reports fever ENT: Reports rhinorrhea, congestion, sore throat RESPIRATORY: Reports cough. Denies dyspnea. All systems reviewed & are unremarkable except as noted in HPI and below PMFSH Past Medical History Medical History (Updated 10/28/24 @ 22:41 by Elizabeth eDlgado PA-C) Anterior shoulder dislocation (11/14/19) History of obesity Family History Family History Other Cancer Diabetes mellitus Heart disease Hypertension Kidney disease Nerve disorder Social History Social History Alcohol intake: current Drinks per week: 1 Substance use: never Exam Narrative: GENERAL: Well-appearing, well-nourished, and in no acute distress. HEAD: Normocephalic, atraumatic. EYES: EOMI. ENT: Nares clear, no rhinorrhea or epistaxis. Mucous membranes moist. Oropharynx without tonsillar hypertrophy exudate or other lesions. Bilateral TMs pearly sorto non-bulging NECK: Supple. No adenopathy or masses. CHEST: Clear to auscultation. No respiratory distress. No wheezes rales or rhonchi HEART: Regular rate and rhythm. No murmur heard. Normal peripheral pulses. EXTREMITIES: Normal range of motion. No edema. SKIN: Warm, dry, no rash. NEURO: No focal deficits. Alert and oriented x3. PSYCH: Normal mood and affect Course Vital Signs Vital signs: Vital Signs Temperature 97.8 F 10/28/24 20:38 Pulse Rate 120 H 10/28/24 20:38 Respiratory Rate 16 10/28/24 20:38 Blood Pressure 118/69 10/28/24 20:38 Pulse Oximetry 99 10/28/24 20:38 Oxygen Delivery Room Air 10/28/24 20:38 Temperature 97.8 F 10/28/24 20:38 Pulse Rate 120 H 10/28/24 20:38 Respiratory Rate 18 10/28/24 20:50 Blood Pressure 118/69 10/28/24 20:38 Pulse Oximetry 97 10/28/24 20:50 Oxygen Delivery Room Air 10/28/24 20:38 MDM - Fever MDM Narrative Medical decision making narrative: Patient presents to the emergency department for cold symptoms present over the last couple of days. She is afebrile and nontoxic appearing. Tachycardic upon arrival, this normalized without intervention. Patient influenza A positive. Will be started on Tamiflu. Instructed on further care a viral infection. She was given warnings to return to the ER Differential Diagnosis Differential diagnosis: Likely fever of unknown origin, viral infection and other (COVID, influenza, RSV) Lab Data Attestation: I reviewed the patient's lab results. Labs: Lab Results 10/28/24 Range/Units 20:55 Influenza A (RT-PCR) Positive A (Negative) Influenza B (RT-PCR) Negative (Negative) RSV (RT-PCR) Negative (Negative) SARS-CoV-2 RNA (RT-PCR) Negative (Negative) Critical Care Time Critical Care Time Critical Care Time: No Discharge Plan Discharge Clinical Impression: Influenza A Patient Disposition: Home, Self-Care Condition: Stable Instructions: Influenza (ED) Additional Instructions: Return to the emergency department for worsening symptoms, or any other concerns Remain well-hydrated, get plenty of rest. Take Tylenol or Motrin [id number] for pain as needed. Flonase for nasal congestion. Zyrtec for runny nose. Take Oseltamivir as prescribed Follow up with primary care doctor Patient Language: Luxembourgish Prescriptions: New oseltamivir 75 mg capsule 75 mg PO Q12H 5 Days Qty: 10 0RF No Action Sprintec (28) 1 tab/day PO DAILY hydrocodone-acetaminophen 5-325 mg tablet 1 tablet PO Q8H PRN (Reason: pain) Qty: 20 0RF cetirizine [Zyrtec] 10 mg tablet 10 mg PO DAILY Qty: 10 0RF famotidine 10 mg tablet 10 mg PO BID Qty: 20 0RF Follow-up/Referrals: Jorge Luis,MD Oniel [Primary Care Provider] -
[2024-10-28 22:47] VITALS: BP 148/83; PULSE 98; RESP 20; TEMP 36.7; O2SAT 98
== END 2024-10-28 22:48 | disposition home or self-care (01) ==
PROVIDERS: Emergency Provider Physician Assistant; PCP Family Medicine
DX: J10.1 Influenza due to other identified influenza virus with other respiratory manifestations (principal); E66.9 Obesity, unspecified; Z68.39 Body mass index [BMI] 39.0-39.9, adult; Z20.822 Contact with and (suspected) exposure to COVID-19
CPT/HCPCS: 87637; 99283